=== PATIENT | male | born 1945 | race Caucasian/White ===

== ENCOUNTER 2022-10-30 06:09 | Emergency (ER) | payer BC ==
[~2022-10-30] VITALS: Ht 177.8 cm; Wt 70.3 kg
--- NOTE | 2022-10-30 06:20 | NUR ---
BIBSO FROM HOME FOUND ON FLOOR, HIT BACK OF HEAD, +KO, -THINNERS, DRANK WINE 2 GLASSES LAST NIGHT, AAOX3 (NAME, PLACE, SITUATION) - STATED IT'S CURRENTLY 2012. PATIENT OBSERVED TO WALK W/ UNSTEADY GAIT. PLACED IN BED, VITALS CHECKED.
--- NOTE | 2022-10-30 06:46 | NUR ---
EKG DONE AT BEDSIDE
[2022-10-30 07:10] LABS: CALCIUM, SERUM 9.2 mg/dL (8.5-10.1); CARBON DIOXIDE 26 mmol/L (21-32); CHLORIDE 110 mmol/L (98-107); CREATININE 0.9 mg/dL (0.6-1.3); GLUCOSE 116 mg/dL (74-106); POTASSIUM 3.5 mmol/L (3.5-5.1); SODIUM SERUM 146 mmol/L (136-145); UREA NITROGEN, BLOOD 19 mg/dL (7-18)
[2022-10-30 07:16] LABS: ALANINE AMINOTRANSFERASE 21 U/L (12-78); ALBUMIN 3.5 g/dL (3.4-5.0); ALCOHOL, BLOOD 117 mg/dL (0-10); ALKALINE PHOSPHATASE 37 U/L (46-116); ASPARTATE AMINOTRANSFERASE 14 U/L (15-37); BILIRUBIN,DIRECT 0.1 mg/dL (0.0-0.2); BILIRUBIN,TOTAL 0.4 mg/dL (0.2-1.0); TOTAL PROTEIN, SERUM 6.1 g/dL (6.4-8.2)
[2022-10-30 07:17] LABS: BASOPHILS % (AUTO) 0.6 % (0.0-2.0); HEMATOCRIT 38 % (39-51); HEMOGLOBIN 12.8 g/dL (13.5-17.5); LYMPHOCYTES # (AUTO) 1.8 K/uL (0.8-4.8); LYMPHOCYTES % (AUTO) 21.2 % (20.0-44.0); MEAN CORPUSCULAR HGB CONC 34 g/dl (31.0-36.0); MEAN CORPUSCULAR VOLUME 95 fL (80-96); MONOCYTES # (AUTO) 0.5 K/uL (0.1-1.30); NEUTROPHILS % (AUTO) 70.2 % (43.0-81.0); PLATELET COUNT (AUTO) 174 K/uL (150-450); RED BLOOD CELL COUNT(AUTO) 4.04 MIL/uL (4.5-6.0); WHITE BLOOD COUNT (AUTO) 8.6 K/uL (4.3-11.0)
--- NOTE | 2022-10-30 09:15 | NUR ---
DR. BARKLEY SPEAKING WITH DR. HUDSON.
--- NOTE | 2022-10-30 09:45 | NUR ---
MOVE SHEET SUBMITTED.
[2022-10-30] MEDS ORDERED: IOHEXOL-350 100 ML VIAL IV ONE (09:58)
[2022-10-30] MEDS ORDERED: CT SWABBABLE VALVE TRANS SET 1 EA INFUS.SET MC ONE (09:58)
[2022-10-30] MEDS ORDERED: IV NS 0.9% 250 ML IV ONE (09:58)
--- NOTE | 2022-10-30 10:10 | NUR ---
patient taken to ct via naye
[2022-10-30] MEDS ORDERED: ROSU20TA32 PO (12:32)
[2022-10-30] MEDS ORDERED: MULT-447 PO (12:32)
[2022-10-30] MEDS ORDERED: LIDOCAINE 2%-EPI 1:100,000 30 ML VIAL ONE (12:34)
[2022-10-30] MEDS ORDERED: BACI30OI9 TP (14:29)
[2022-10-30] MEDS ORDERED: CEPH500C2 PO (14:29)
--- NOTE | 2022-10-30 15:01 | NUR ---
patient decided to leave a. SPOKE TO DR. HUDSON AND SIGNED
[2022-10-30 15:04] VITALS: BP 121/72
== END 2022-10-30 15:04 | disposition left against medical advice (07) ==
LOC: ER 06:12
DX: S01.01XA Laceration without foreign body of scalp, initial encounter (principal); I61.5 Nontraumatic intracerebral hemorrhage, intraventricular; R55 Syncope and collapse; F10.129 Alcohol abuse with intoxication, unspecified; Z79.899 Other long term (current) drug therapy; X58.XXXA Exposure to other specified factors, initial encounter; Y93.89 Activity, other specified; Y92.89 Other specified places as the place of occurrence of the external cause; Y99.8 Other external cause status; Y90.5 Blood alcohol level of 100-119 mg/100 ml
CPT/HCPCS: 12004; 99291; 93005; 70450; 70498; 70496; 85025; 80048; 80076; 83735; 36415; 84484 ×2; 85730; 87081; 80320; J7050; J3490; Q9967; G0480